=== PATIENT | male | born 1975 | race Two or more races ===

== ENCOUNTER → 2018-02-06 | Outpatient (CLI) | payer OTHER ==
[~2018-02-06] MED LIST: OXYB5TAB7 PO
== END | disposition home or self-care (01) ==
LOC: STAR 09:43
PROVIDERS: ATTEND Surgery
DX: Z02.9 Encounter for administrative examinations, unspecified (principal)

== ENCOUNTER 2018-02-12 10:28 | Day surgery (SDC) | payer OTHER ==
[~2018-02-12] VITALS: Ht 167.6 cm; Wt 96.8 kg
[~2018-02-12 10:28] MED LIST changes: +BUPIVACAINE/PF 0.5% ONE; +EPINEPHRINE 1 MG/ML, 1ML ONE
[2018-02-12] MEDS ORDERED: LACTATED RINGERS 1,000 ML IV SCH (10:59)
[2018-02-12] MEDS ORDERED: ACETAMINOPHEN 500 MG TABLET PO ONE (11:00)
[2018-02-12] MEDS ORDERED: GABAPENTIN 300 MG CAPSULE PO ONE (11:00)
[2018-02-12 11:25] VITALS: BP 122/84
[2018-02-12] MEDS ORDERED: FENTANYL PF 100 MCG/2ML IV PRN (11:30)
[2018-02-12] MEDS ORDERED: PROCHLORPERAZINE 5 MG/ML, 2ML IV PRN (11:30)
[2018-02-12] MEDS ORDERED: LABETALOL 5MG/ML, 20ML IV PRN (11:30)
[2018-02-12] MEDS ORDERED: MEPERIDINE/PF 25MG/0.5ML IVPush PRN (11:30)
[2018-02-12] MEDS ORDERED: hydrALAzine 20 MG/ML, 1ML IV PRN (11:30)
[2018-02-12] MEDS ORDERED: HYDROmorphone 1 MG/ML, 1ML IV PRN (11:30)
[2018-02-12] MEDS ORDERED: DIPHENHYDRAMINE 50 MG/ML, 1ML IVPush PRN (11:30)
[2018-02-12] MEDS ORDERED: FENTANYL PF 250 MCG/5ML ONE (11:51)
[2018-02-12] MEDS ORDERED: KETOROLAC 30 MG/1 ML ONE (12:26)
[2018-02-12] MEDS ORDERED: SUCCINYLCHOLINE 20 MG/ML, 10ML ONE (13:09)
[2018-02-12] MEDS ORDERED: NEOSTIGMINE 1 MG/ML, 10ML ONE (13:09)
[2018-02-12] MEDS ORDERED: CEFAZOLIN 1,000 MG ONE (13:09)
[2018-02-12] MEDS ORDERED: ROCURONIUM 10MG/ML,5ML ONE (13:09)
[2018-02-12] MEDS ORDERED: DEXAMETHASONE 4 MG/ML, 1ML ONE (13:09)
[2018-02-12] MEDS ORDERED: PROPOFOL 10 MG/ML, 20ML ONE (13:09)
[2018-02-12] MEDS ORDERED: GLYCOPYRROLATE 0.2MG/1ML, 5ML ONE (13:09)
[2018-02-12] MEDS ORDERED: ONDANSETRON 2MG/ML, 2ML ONE ×2 (13:09→17:37)
[2018-02-12] MEDS ORDERED: OXYcodone 5 MG/5 ML ORAL.SOL UDC ONE ×2 (13:46→14:05)
[2018-02-12] MEDS: OXYcodone 5 MG/5 ML ORAL.SOL UDC PO PRN ×2 (13:49→14:08)
[2018-02-12] MEDS ORDERED: FENTANYL PF 100 MCG/2ML ONE (14:05)
[2018-02-12] MEDS ORDERED: ONDANSETRON 2MG/ML, 2ML IVPush PRN (18:00)
== END 2018-02-12 18:50 | disposition home or self-care (01) ==
LOC: OUT 10:28
PROVIDERS: ATTEND Surgery
DX: K42.0 Umbilical hernia with obstruction, without gangrene (principal)
CPT/HCPCS: 49585; C1781; J0171; J0330; J0690; J1100; J1885; J2405; J2704; J2710; J3010; J3490; J7120